=== PATIENT | male | born 1990 | race Caucasian/White ===

== ENCOUNTER 2021-06-30 15:15 | Emergency (ER) | payer OTHER ==
[~2021-06-30] VITALS: Ht 175.3 cm; Wt 71.2 kg
[2021-06-30] MEDS ORDERED: IBUP600 PO (17:07)
== END 2021-06-30 17:38 | disposition home or self-care (01) ==
LOC: ER 15:15
DX: S83.004A Unspecified dislocation of right patella, initial encounter (principal); X58.XXXA Exposure to other specified factors, initial encounter; Y99.0 Civilian activity done for income or pay
CPT/HCPCS: 73562-RT; 99283-25